=== PATIENT | female | born 1950 | race Caucasian/White ===

== ENCOUNTER → 2024-09-12 08:58 | Outpatient (REF) | payer MEDICARE, BC, SELFPAY | LOC: RCS 08:58 | PROVIDERS: ATTENDING PHYSICIAN Internal Medicine Cardiovascular Disease; FAMILY PHYSICIAN Family Medicine | DX: I05.9 Rheumatic mitral valve disease, unspecified (principal) | CPT/HCPCS: 93306 ==

== ENCOUNTER → 2024-09-26 09:02 | Outpatient (REF) | payer MEDICARE, BC, SELFPAY | LOC: RCS 09:02 | PROVIDERS: ATTENDING PHYSICIAN Internal Medicine Cardiovascular Disease; FAMILY PHYSICIAN Family Medicine | DX: I34.0 Nonrheumatic mitral (valve) insufficiency (principal); R06.09 Other forms of dyspnea; R94.31 Abnormal electrocardiogram [ECG] [EKG] | CPT/HCPCS: 93017; 93350 ==

== ENCOUNTER → 2024-10-14 08:16 | Outpatient (REF) | payer MEDICARE, BC, SELFPAY | LOC: WDC 08:16 | PROVIDERS: ATTENDING PHYSICIAN Obstetrics & Gynecology Gynecology; FAMILY PHYSICIAN Family Medicine | DX: M85.89 Other specified disorders of bone density and structure, multiple sites (principal); Z12.31 Encounter for screening mammogram for malignant neoplasm of breast; Z12.39 Encounter for other screening for malignant neoplasm of breast | CPT/HCPCS: 77063; 77067; 77080 ==

== ENCOUNTER 2024-12-25 15:06 | Outpatient (RCR) | payer MEDICARE, BC, SELFPAY | END 2024-12-25 23:59 | disposition home or self-care (01) | LOC: RST 15:06 | PROVIDERS: ATTENDING PHYSICIAN Otolaryngology; FAMILY PHYSICIAN Family Medicine | DX: G24.4 Idiopathic orofacial dystonia (principal); R49.8 Other voice and resonance disorders | CPT/HCPCS: 92507; 92524 ==

== ENCOUNTER 2025-01-15 11:23 | Outpatient (RCR) | payer MEDICARE, BC, SELFPAY | END 2025-01-15 23:59 | disposition home or self-care (01) | LOC: RST 11:23 | PROVIDERS: ATTENDING PHYSICIAN Otolaryngology; FAMILY PHYSICIAN Family Medicine | DX: G24.4 Idiopathic orofacial dystonia (principal); R49.8 Other voice and resonance disorders | CPT/HCPCS: 92507 ==

== ENCOUNTER 2025-02-14 09:26 | Outpatient (RCR) | payer MEDICARE, BC, SELFPAY | END 2025-02-14 23:59 | disposition home or self-care (01) | LOC: RST 09:26 | PROVIDERS: ATTENDING PHYSICIAN Otolaryngology; FAMILY PHYSICIAN Family Medicine | DX: G24.4 Idiopathic orofacial dystonia (principal); R49.8 Other voice and resonance disorders | CPT/HCPCS: 92507 ==

== ENCOUNTER 2025-03-12 11:05 | Outpatient (RCR) | payer MEDICARE, BC, SELFPAY | END 2025-03-12 23:59 | disposition home or self-care (01) | LOC: RST 11:05 | PROVIDERS: ATTENDING PHYSICIAN Otolaryngology; FAMILY PHYSICIAN Family Medicine | DX: G24.4 Idiopathic orofacial dystonia (principal); R49.8 Other voice and resonance disorders | CPT/HCPCS: 92507 ==

== ENCOUNTER 2025-04-02 08:43 | Outpatient (RCR) | payer MEDICARE, BC, SELFPAY | END 2025-04-02 11:02 | disposition home or self-care (01) | LOC: RST 08:43 | PROVIDERS: ATTENDING PHYSICIAN Otolaryngology; FAMILY PHYSICIAN Family Medicine | DX: G24.4 Idiopathic orofacial dystonia (principal); R49.8 Other voice and resonance disorders | CPT/HCPCS: 92507 ==

== ENCOUNTER 2025-08-11 11:24 | Emergency (ER) | payer MEDICARE, BC, SELFPAY ==
[2025-08-11 11:37] VITALS: BP 143/92
--- NOTE | 2025-08-11 12:01 | ED.SKININJ ---
HPI-Injury
General
Chief Complaint: Skin Surface Trauma
Source: patient
Exam Limitations: none
Time Seen by Provider: 08/11/25 11:54
Nursing documentation reviewed up to this point in time: agreed with
History of Present Illness-Injury
Initial Injury comments:
75-year-old female with no clinically significant past medical history states she was gardening today, she was using a hay fork and went to stick it in the ground and accidentally stuck through her clog into the top of her right foot between the
2nd and 3rd toes.
She called her PCP office to check on her tetanus immunization: Last dT was 2020.
Past History
Past History
ED Past Medical History: Other (Mitral regurgitation, glaucoma, brain bleed 2012)
ED Past Surgical History: Gynecological and Orthopedic
Review of Systems
Review of Systems
Allergies reviewed?: Yes
All Other Systems: ROS reviewed and negative except as documented in HPI and ROS
Phy Exam
Physical Exam
Physical Exam:
PHYSICAL EXAMINATION:
General: no apparent distress, not acutely ill
Neuro: alert and oriented.
Psychiatric: well kept. interactive and cooperative
Musculoskeletal: Moves with ease
Skin: Warm, pink. Puncture distal right foot base soft tissue between the 2nd and 3rd toes. It is about 2 mm deep and 4 mm long. No active bleeding.
Course
Orders/Labs/Results
Orders:
Orders
08/11/25 12:[address] Non Medication Order As Directed
Physician Order: Please soak foot in warm betadine solution. Thanks
Vital Signs
Initial and Last Documented VS:
Initial Vital Signs
Temp Pulse Resp BP Pulse Ox
99.4 F 91 18 143/92 97
08/11/25 11:37 08/11/25 11:37 08/11/25 11:37 08/11/25 11:37 08/11/25 11:37
Last Documented Vital Signs
Temp Pulse Resp BP Pulse Ox
99.4 F 91 18 143/92 97
08/11/25 11:37 08/11/25 11:37 08/11/25 11:37 08/11/25 11:37 08/11/25 12:06
MDM/Problems Addressed
MDM/Problems Addressed:
75-year-old female with no clinically significant past medical history states she was gardening today, she was using a hay fork and went to stick it in the ground and accidentally stuck through her clog into the top of her right foot between the
2nd and 3rd toes.
She called her PCP office to check on her tetanus immunization: Last dT was 2020.
Wound is relatively small, should heal well by secondary intention. Soaked in betadine solution for 10 minutes, atb ointment and bandaid applied.
Discussed wound care and return criteria.
*Pulse Oximetry
SaO2: 97
Oxygen Mode of Delivery: Room air
Patient hypoxic: not evaluated
*Critical Care Note
Total Time (30-74mins, 75-104mins- exclusive of procedures): Not Applicable
ED Attending Note
-
Portions of this chart may have been created with voice recognition software.� Occasional wrong word or��sound alike� substitutions may have occurred due to the inherent limitations of voice recognition software.
Discharge Plan
Departure
Patient Disposition: Home (Routine Discharge)
Date of Disposition: 08/11/25
Time of Disposition: 13:12
Patient with high blood pressure during this ER visit?: No
Condition: Good
Discharge Problem:
Puncture wound of right foot
Instructions: Wound Care (DC), Puncture Wound
Referrals:
Janes Fabian MD [Family Provider, Family Practice] - As needed
Activity Restrictions/Additional Instructions:
As we discussed, soak the foot in warm water for 10 minutes 3 times a day for the next 3 days.
Keep it clean, dry and covered except for bathing
It takes about 2 weeks for this area to heal.
Seek medical care immediately for signs of infection which may include increasing pain, redness, swelling, pus drainage, red streak up the ankle or fever.
Interventions
Interventions:
*Risk Screen - Suicide Last Done: 08/11/25 11:37
*Nursing Disposition Last Done: 08/11/25 13:39
Discharge Date and Time
Discharge Date/Time: 08/11/25 13:40
Print Language: VINCENTIAN
== END 2025-08-11 13:40 | disposition home or self-care (01) ==
LOC: EMR 11:24
PROVIDERS: EMERGENCY PHYSICIAN Emergency Medicine; FAMILY PHYSICIAN Family Medicine
DX: S91.331A Puncture wound without foreign body, right foot, initial encounter (principal); W27.1XXA Contact with garden tool, initial encounter; Y93.H2 Activity, gardening and landscaping
CPT/HCPCS: 99282

== ENCOUNTER → 2025-10-20 08:50 | Outpatient (REF) | payer MEDICARE, BC, SELFPAY | LOC: WDC 08:50 | PROVIDERS: ATTENDING PHYSICIAN Obstetrics & Gynecology Gynecology; FAMILY PHYSICIAN Family Medicine | DX: Z12.31 Encounter for screening mammogram for malignant neoplasm of breast (principal) | CPT/HCPCS: 77063; 77067 ==